=== PATIENT | female | born 1935 | race Caucasian/White ===

== ENCOUNTER 2016-09-06 15:54 | Observation (INO) | payer MEDICARE, MEDICAID ==
[~2016-09-06] VITALS: Ht 160 cm; Wt 73.0 kg
[2016-09-06 15:56] VITALS: BP 168/72; PULSE 67; RESP 20; TEMP 98; O2SAT 99
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
[2016-09-06 17:27] LABS: AUTOMATED NEUTROPHIL # 4.2 TH/MM3 (1.8-7.7); BASOPHIL % 0.4 % (0.0-2.0); EOSINOPHIL # 0.5 TH/MM3 (0-0.4); EOSINOPHIL % 7.8 % (0.0-4.0); HEMATOCRIT 33.7 % (35.0-46.0); HEMO FLAGS DIFF FINAL; LYMPH % 20.1 % (9.0-44.0); LYMPHOCYTE # 1.3 TH/MM3 (1.0-4.8); MEAN CELL VOLUME 86.3 FL (80.0-100.0); MEAN CORPUSCULAR HEMOGLOBIN 28.3 PG (27.0-34.0); MEAN CORPUSCULAR HGB CONC 32.8 % (32.0-36.0); MONO % 7.2 % (0.0-8.0); NEUT % 64.5 % (16.0-70.0); PLATELET COUNT 199 TH/MM3 (150-450); RED BLOOD COUNT 3.91 MIL/MM3 (4.00-5.30); RED CELL DISTRIBUTION WIDTH 15.8 % (11.6-17.2); WHITE BLOOD COUNT 6.5 TH/MM3 (4.0-11.0)
[2016-09-06 17:34] LABS: BACTERIA, URINE MOD /hpf; BLOOD, URINE SMALL (NEG); COMMENT (UR) CULTURE INDICATED; CULTURE IF INDICATED CULTURE INDICATED; GLUCOSE,URINE NEG (NEG); KETONE, URINE NEG (NEG); NITRITE,URINE NEG (NEG); PH, URINE 5.5 (5.0-8.5); SQUAMOUS EPITHELIAL CELL URINE 1 /hpf (0-5); URINE COLOR YELLOW (YELLW/STRAW)
[2016-09-06 17:35] LABS: AMPHETAMINE, URINE NEG (NEG); BARBITURATES, URINE NEG (NEG); COCAINE, URINE NEG (NEG)
[2016-09-06 17:54] LABS: ANION GAP 8 MEQ/L (5-15)
[2016-09-06 18:12] LABS: ALKALINE PHOSPHATASE 68 U/L (45-117); ALT (GPT) 14 U/L (10-53); AST (GOT) 16 U/L (15-37); BICARBONATE 25.2 MEQ/L (21.0-32.0); BLOOD UREA NITROGEN 37 MG/DL (7-18); CHLORIDE 108 MEQ/L (98-107); GLOMERULAR FILTRATION RATE 27 ML/MIN (>89); POTASSIUM 4.3 MEQ/L (3.5-5.1); SODIUM (NA) 141 MEQ/L (136-145); TOTAL BILIRUBIN ADULT 0.6 MG/DL (0.2-1.0)
[2016-09-06 18:13] LABS: ACETAMINOPHEN LESS THAN 2.0 MCG/ML (10.0-30.0)
[2016-09-06] MEDS ORDERED: cefTRIAXone INJ 2,000 MG in SODIUM CHLORIDE 0.9% INJ 100 ML IV ONE (19:00)
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
[2016-09-06] MEDS ORDERED: LORazepam 1 MG TAB PO ONE (19:45)
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
[2016-09-06] MEDS ORDERED: LORazepam 2 MG/ML VIAL IM ONE (20:00)
[2016-09-06] MEDS ORDERED: SODIUM CHLORIDE 0.9% FLUSH 10 ML FLUSH IV FLUSH PRN (20:00)
[2016-09-06] MEDS ORDERED: NALOXONE HCL 0.4 MG/ML AMP IV PRN (20:00)
[2016-09-06] MEDS: SODIUM CHLORIDE 0.9% FLUSH 10 ML FLUSH IV FLUSH SCH (21:00)
[2016-09-06] MEDS ORDERED: LORazepam 2 MG/ML VIAL IV PUSH ONE (21:30)
[2016-09-07] VITALS (8 sets, daily range): BP systolic 133–156; BP diastolic 62–72; PULSE 69–70; RESP 17–20; TEMP 97.2–98.1; O2SAT 94–98
[2016-09-07 07:33] LABS: AUTOMATED NEUTROPHIL # 4.3 TH/MM3 (1.8-7.7); BASOPHIL # 0.1 TH/MM3 (0-0.2); BASOPHIL % 0.8 % (0.0-2.0); EOSINOPHIL # 0.5 TH/MM3 (0-0.4); EOSINOPHIL % 8.2 % (0.0-4.0); HEMATOCRIT 28.6 % (35.0-46.0); HEMO FLAGS DIFF FINAL; MEAN CELL VOLUME 86.1 FL (80.0-100.0); MEAN CORPUSCULAR HEMOGLOBIN 28.9 PG (27.0-34.0); MEAN CORPUSCULAR HGB CONC 33.6 % (32.0-36.0); MONO % 9.2 % (0.0-8.0); NEUT % 65.8 % (16.0-70.0); PLATELET COUNT 159 TH/MM3 (150-450); RED BLOOD COUNT 3.32 MIL/MM3 (4.00-5.30); RED CELL DISTRIBUTION WIDTH 15.7 % (11.6-17.2); WHITE BLOOD COUNT 6.5 TH/MM3 (4.0-11.0)
[2016-09-07 08:22] LABS: BICARBONATE 24.2 MEQ/L (21.0-32.0); POTASSIUM 4.2 MEQ/L (3.5-5.1)
--- NOTE | 2016-09-07 09:41 | HHI.HP ---
[facility] Admission Diagnosis UTI, AMS Diagnoses: Chief Complaint: Memory problems Travel History International Travel<30 Days: No Contact w/Intl Traveler <30 Da: No Traveled to Known Affected Are: No History of Present Illness Written by Bentley Tran, acting as scribe for Dr. Painter on 09/07/16 at 09:41. This note was transcribed by DAYAMI Jordan. I, Dr. Zay Painter personally performed the history, physical exam, and medical decision making; and confirmed the accuracy of the information in the transcribed note. Authenticated by Dr. Zay Painter on 09/07/16 at 23:22. 81-year-old female with past medical history of dementia who was reportedly brought in by her daughter due to agitation. The patient is not really sure why she came to the hospital, states that she has "memory problems". She isn't really having any acute complaints or concerns at this time. The patient knows that she is in the hospital, thinks that she is in [place]. The patient did guess that the month is September, but does not know the year. When asked mother present, the patient initially states "Rosalia", but when questioned further she states the president is "the liz with the funny hair", but she cannot recall the president's name. Discussed with RN, no acute issues overnight. Upon further questioning, the patient has noticed some mild burning with urination recently. She denies any hematuria, flank pain, fever, chills. She denies any issues after receiving IV ceftriaxone. Reportedly the patient's daughter brought the patient in due to episodes of agitation yesterday. 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, although the patient denies any heart issues Dementia Past Surgical History Appendectomy Reported Medications Patient reports none Allergies: Coded Allergies: Penicillin (Verified Allergy, Unknown, 09/06/16) Uncoded Allergies: ANYTHING THAT CAUSES TORSADES (Adverse Reaction, Severe, 09/06/16) Active Ordered Medications Current Medications Medications (Trade) Dose Ordered Sig/[place]anda Route Start Time Stop Time Status Last Admin (NS Flush) 2 ml UNSCH PRN IV FLUSH 09/06/16 20:00 (NS Flush) 2 ml BID IV FLUSH 09/06/16 21:00 Naloxone HCl 0.4 mg 0.4 mg UNSCH PRN IV 09/06/16 20:00 (Rocephin Inj/NS Inj) 100 ml @ 200 mls/hr Q24H IV 09/07/16 21:00 Family History Patient states her father of tuberculosis and her mother of a heart attack Social History The patient lives at home with her daughter Denies any tobacco or alcohol use Physical Exam Vital Signs Vital Signs Date Time Temp Pulse Resp B/P Pulse Ox O2 Delivery O2 Flow Rate FiO2 09/07/16 08:00 70 09/07/16 07:15 98.1 70 18 156/65 98 09/07/16 04:32 98.1 70 17 152/72 94 09/07/16 03:29 69 09/07/16 01:57 70 09/07/16 00:39 97.2 70 17 137/65 97 09/06/16 18:52 18 09/06/16 15:56 98.0 67 20 168/72 99 Room Air Physical Exam GENERAL: Well-developed well-nourished. In no acute distress. Oriented 2. SKIN: Warm and dry. No lesions noted. HEENT: Normocephalic. Pupils equal and round. Mucous membranes pink and moist. CARDIOVASCULAR: Regular rate and rhythm. No murmur appreciated. RESPIRATORY: No accessory muscle use. Clear to auscultation. Breath sounds equal bilaterally. GASTROINTESTINAL: Abdomen soft, non-tender, nondistended. Bowel sounds x4. MUSCULOSKELETAL: No obvious deformities. No clubbing or cyanosis. No edema. NEUROLOGICAL: Awake and alert. No focal neurological deficits. Moves upper and lower extremities spontaneously. Normal speech. PSYCHIATRIC: Calm, pleasant mood and affect; insight and judgment fair. Laboratory Laboratory Tests Test 09/06/16 09/06/16 09/07/16 16:40 16:45 06:31 Urine Color YELLOW Urine Turbidity HAZY Urine pH 5.5 Urine Specific [place] 1.013 Urine Protein NEG Urine Glucose (UA) NEG Urine Ketones NEG Urine Occult Blood SMALL Urine Nitrite NEG Urine Bilirubin NEG Urine Urobilinogen LESS THAN 2.0 Urine Leukocyte Esterase LARGE Urine RBC 10 Urine WBC 151 Urine WBC Clumps FEW Urine Squamous Epithelial 1 Cells Urine Bacteria MOD Microscopic Urinalysis Comment CULTURE INDICATED Urine Opiates Screen NEG Urine Barbiturates Screen NEG Urine Amphetamines Screen NEG Urine Benzodiazepines Screen NEG Urine Cocaine Screen NEG Urine Cannabinoids Screen NEG White Blood Count 6.5 6.5 Red Blood Count 3.91 3.32 Hemoglobin 11.1 9.6 Hematocrit 33.7 28.6 Mean Corpuscular Volume 86.3 86.1 Mean Corpuscular Hemoglobin 28.3 28.9 Mean Corpuscular Hemoglobin 32.8 33.6 Concent Red Cell Distribution Width 15.8 15.7 Platelet Count 199 159 Mean Platelet Volume 7.9 8.0 Neutrophils (%) (Auto) 64.5 65.8 Lymphocytes (%) (Auto) 20.1 16.0 Monocytes (%) (Auto) 7.2 9.2 Eosinophils (%) (Auto) 7.8 8.2 Basophils (%) (Auto) 0.4 0.8 Neutrophils # (Auto) 4.2 4.3 Lymphocytes # (Auto) 1.3 1.0 Monocytes # (Auto) 0.5 0.6 Eosinophils # (Auto) 0.5 0.5 Basophils # (Auto) 0.0 0.1 CBC Comment DIFF FINAL DIFF FINAL Differential Comment Sodium Level 141 143 Potassium Level 4.3 4.2 Chloride Level 108 111 Carbon Dioxide Level 25.2 24.2 Anion Gap 8 8 Blood Urea Nitrogen 37 37 Creatinine 1.79 1.58 Estimat Glomerular Filtration 27 31 Rate Random Glucose 100 97 Calcium Level 9.8 8.7 Total Bilirubin 0.6 Aspartate Amino Transf 16 (AST/SGOT) Alanine Aminotransferase 14 (ALT/SGPT) Alkaline Phosphatase 68 Total Protein 8.8 Albumin 4.0 Thyroid Stimulating Hormone 1.650 3rd Gen Acetaminophen Level LESS THAN 2.0 Ethyl Alcohol Level LESS THAN 3 Salicylates Level 2.0 Date/Time Procedure Status Source Growth 09/06/16 16:40 Urine Culture Received Urine Random Urine Pending Result Diagram: 09/07/1631 09/07/16630 Assessment and Plan Assessment and Plan 81-year-old female with past medical history of dementia who was reportedly brought in by her daughter due to agitation Dementia with agitation: By history. Currently under Mccurdy act. Patient has been calm and cooperative here. Possibly exacerbated by UTI as below. Psychiatry consulted. Continue sitter for now. UTI: UA with evidence of UTI and patient complains of dysuria. Continue IV ceftriaxone. Follow up urine culture. JUAN F: Creatinine 1.79, no previous labs for comparison. Unclear if element CKD vs acute worsening due to above infection. Creatinine did improve spontaneously to 1.58 overnight. Start IVF. Follow-up BMP. DVT prophylaxis: SCDs Disposition: Patient was evaluated by psychiatry who recommended medical psychiatry admission. Discharge to medical psychiatry unit to use IV antibiotics and IV fluids pending results of urine culture. Discharge patient to Psych care facility. Condition on discharge: Improved Regular Diet as tolerated Ad Umm activity Rx written: Ceftriaxone 1g IM Q24hrs x 3 days. Follow-up with primary care physician per Psychiatry team. Discussed Condition With Patient, Bentley Parker Sep 07, 2016 09:41 Allison Painter DO Sep 07, 2016 23:23
[2016-09-07] MEDS ORDERED: SODIUM CHLOR 0.9% 1000 ML INJ 1,000 ML IV SCH (10:00)
[2016-09-07] MEDS: SODIUM CHLORIDE 0.9% FLUSH 10 ML FLUSH IV FLUSH SCH (10:02)
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
[2016-09-07] MEDS ORDERED: CEFT1INJ IM (12:34)
[2016-09-07] MEDS ORDERED: cefTRIAXone INJ 1,000 MG in SODIUM CHLORIDE 0.9% INJ 100 ML IV SCH (21:00)
--- NOTE | 2016-09-08 09:37 | EKG ---
Date Performed: 09/07/2016 Time Performed: 12:33:07 PTAGE: 81 years EKG: ELECTRONIC ATRIAL PACEMAKER NONSPECIFIC T-WAVE ABNORMALITY ABNORMAL RHYTHM ECG NO PREVIOUS TRACING DOCTOR: Harry Bowers Interpretating Date/Time 09/08/2016 09:33:43
== END 2016-09-07 15:26 ==
LOC: NEPD 15:54 → INTOOBSV 19:58 → NEDA 19:58 → NEPGCP 09-07 00:31
PROVIDERS: ADMIT Hospitalist; ATTEND Hospitalist
DX: G30.9 Alzheimer's disease, unspecified (principal); F02.81 Dementia in other diseases classified elsewhere, unspecified severity, with behavioral disturbance; Z91.83 Wandering in diseases classified elsewhere; N39.0 Urinary tract infection, site not specified; R31.9 Hematuria, unspecified; N17.9 Acute kidney failure, unspecified; E78.00 Pure hypercholesterolemia, unspecified; I11.0 Hypertensive heart disease with heart failure; I50.9 Heart failure, unspecified
CPT/HCPCS: 80048; 80053; 80307; 81001; 84443; 85025; 87077; 87086; 87186; 93005; 96365; 96376; 97162; 99285; G0378; G8987; G8988; J0696; J7030

== ENCOUNTER 2016-09-07 14:50 | Inpatient (IN) | payer MEDICARE, MEDICAID ==
[~2016-09-07 14:50] MED LIST: CEFT1INJ IM
[2016-09-07 15:45] VITALS: BP 152/67; PULSE 70; RESP 18; TEMP 99; O2SAT 95
[2016-09-07] MEDS ORDERED: LORazepam 1 MG TAB PO PRN (16:15)
[2016-09-07] MEDS: NICOTINE 21 MG/24 HR PATCH T-DERMAL SCH (16:15)
[2016-09-07] MEDS ORDERED: MAGNESIUM HYDROXIDE SUSP 30 ML CUP PO PRN (16:15)
[2016-09-07] MEDS ORDERED: ACETAMINOPHEN 325 MG TAB PO PRN (16:15)
[2016-09-07] MEDS ORDERED: LORazepam 0.5 MG TAB PO PRN (16:15)
[2016-09-07] MEDS ORDERED: LORazepam 2 MG/ML VIAL IM PRN ×2 (16:15)
[2016-09-07] MEDS ORDERED: ALUMINUM/MAGNESIUM/SIMETH 30 ML CUP PO PRN (16:15)
[2016-09-07] MEDS: SODIUM CHLOR 0.9% 1000 ML INJ 1,000 ML IV SCH (17:15)
[2016-09-07 18:10] VITALS: BP 127/58; PULSE 70; RESP 16; TEMP 98.3; O2SAT 99
[2016-09-07] MEDS ORDERED: cefTRIAXone INJ 1,000 MG in SODIUM CHLORIDE 0.9% INJ 100 ML IV SCH (20:00)
[2016-09-07] MEDS: REMOVE OLD NICODERM (NICOTINE) PATCH T-DERMAL SCH (20:39)
[2016-09-08] MEDS: SODIUM CHLOR 0.9% 1000 ML INJ 1,000 ML IV SCH ×2 (05:10→17:05)
[2016-09-08 06:17] VITALS: BP 150/75; PULSE 69; RESP 16; TEMP 96.8; O2SAT 96
[2016-09-08 08:01] VITALS: BP 150/75; PULSE 69; RESP 16; TEMP 96.8
[2016-09-08 08:32] LABS: ANION GAP 8 MEQ/L (5-15); BICARBONATE 25.3 MEQ/L (21.0-32.0); BLOOD UREA NITROGEN 31 MG/DL (7-18); CHLORIDE 109 MEQ/L (98-107); GLOMERULAR FILTRATION RATE 34 ML/MIN (>89); HDL CHOLESTEROL 30.2 MG/DL (40.0-60.0); LDL CHOLESTEROL 74 MG/DL (0-99); POTASSIUM 4.5 MEQ/L (3.5-5.1); SODIUM (NA) 142 MEQ/L (136-145)
[2016-09-08] MEDS: NICOTINE 21 MG/24 HR PATCH T-DERMAL SCH (09:00)
--- NOTE | 2016-09-08 14:31 | EKG ---
Date Performed: 09/08/2016 Time Performed: 10:50:49 PTAGE: 81 years EKG: ELECTRONIC ATRIAL PACEMAKER NONSPECIFIC T-WAVE ABNORMALITY ABNORMAL RHYTHM ECG Since PREVIOUS TRACING , no significant change noted PREVIOUS TRACIN09/07/2016 12.33 DOCTOR: Harry Bowers Interpretating Date/Time 09/08/2016 14:29:40
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
[2016-09-08 16:44] LABS: HEMOGLOBIN A1a 1.2 %; HEMOGLOBIN A1b 1.7 %; HEMOGLOBIN Ao 83.8 %; HEMOGLOBIN LA1C 2.5 %
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
[2016-09-08 18:56] VITALS: BP 177/74; RESP 16; TEMP 98.4
[2016-09-08] MEDS: REMOVE OLD NICODERM (NICOTINE) PATCH T-DERMAL SCH (21:00)
[2016-09-08 21:03] LABS: FERRITIN 347 NG/ML (8-252); TRANSFERRIN IRON PROFILE 173 MG/DL (200-360)
[2016-09-08] MEDS: CIPROFLOXACIN 250 MG TAB PO SCH (21:06)
[2016-09-09] MEDS: SODIUM CHLOR 0.9% 1000 ML INJ 1,000 ML IV SCH ×2 (04:58→17:11)
[2016-09-09 06:10] VITALS: BP 158/68; PULSE 70; RESP 16; TEMP 98.3; O2SAT 95
[2016-09-09 06:19] VITALS: BP 158/68; PULSE 70; RESP 15; TEMP 98.3; O2SAT 95
[2016-09-09] MEDS: CIPROFLOXACIN 250 MG TAB PO SCH ×2 (09:17→21:16)
--- NOTE | 2016-09-09 09:17 | HHI.PR ---
Subjective Remarks Sleepy, says she did not sleep overnight much. Per nurse she was very upset yesterday and she did refuse meds and eating. Patient says she is feeling better today. No n/v/d/c. Doesn't have any urinary complaints. No n/v/d/c. Objective Vitals Vital Signs Date Time Temp Pulse Resp B/P Pulse Ox O2 Delivery O2 Flow Rate FiO2 09/09/16 06:19 98.3 70 15 158/68 95 09/09/16 06:10 98.3 70 16 158/68 95 09/08/16 18:56 98.4 16 177/74 I/O 09/08/16 09/08/16 09/08/16 09/09/16 09/09/16 09/09/16 07:00 15:00 23:00 07:00 15:00 23:00 Intake Total 240 ml 1680 ml 840 ml 1200 ml 960 ml Balance 240 ml 1680 ml 840 ml 1200 ml 960 ml Intake Oral 240 ml 1680 ml 840 ml 1200 ml 960 ml # Voids 2 2 2 6 Result Diagram: 09/08/16 0730 Objective Remarks GENERAL: This is a well-nourished, well-developed patient, in no apparent distress. Awake and alert. Calm and pleasant. CARDIOVASCULAR: Regular rate and rhythm without murmurs, gallops, or rubs. RESPIRATORY: Clear to auscultation. Breath sounds equal bilaterally. No wheezes , rales, or rhonchi. GASTROINTESTINAL: Abdomen soft, non-tender, nondistended. No hepato-splenomegaly , or palpable masses. No guarding. MUSCULOSKELETAL: Extremities without clubbing, cyanosis, or edema. No joint tenderness, effusion, or edema noted. No calf tenderness. NEUROLOGICAL: Awake and alert. Able to move all extremities. Normal speech. A/P Assessment and Plan 81 year old female with past medical history of dementia who was reportedly brought in to the hospital under Mccurdy act by her daughter due to agitation found to have acute kidney injury and a urinary tract infection. Hospitalist services have been consulted for ongoing medical management. Dementia with behavioral disturbance AMS Management per psychiatric team Possibly related to urinary tract infection UTI Urine culture positive for greater than 100,000 Enterobacter cloacae DC IV ceftriaxone. Begin Cipro by mouth. JUAN F Unknown if patient underlying CKD Trending down Avoid nephrotoxic agents Encourage fluids Continue to monitor BMP History of CHF, not in acute exacerbation Torsades de pointes Monitor for evidence of fluid overload Avoid QTC prolonging medications Potassium 4.5 Check Mag level Anemia Trending down Stool for occult blood Iron studies ordered Monitor DVT prophylaxis Ambulate Thank you for this consultation. We will follow along Discussed Condition With Patient and nurse Светлана Johnson MD Sep 09, 2016 09:17
[2016-09-09] MEDS: NICOTINE 21 MG/24 HR PATCH T-DERMAL SCH (09:20)
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
[2016-09-09 17:12] LABS: BICARBONATE 24.6 MEQ/L (21.0-32.0)
[2016-09-09] MEDS: REMOVE OLD NICODERM (NICOTINE) PATCH T-DERMAL SCH (21:00)
[2016-09-10] VITALS: BP 167/77; PULSE 71; RESP 15; TEMP 98.5; O2SAT 96
[2016-09-10] MEDS: SODIUM CHLOR 0.9% 1000 ML INJ 1,000 ML IV SCH ×2 (04:50→16:45)
[2016-09-10] MEDS: CIPROFLOXACIN 250 MG TAB PO SCH ×2 (08:12→20:25)
[2016-09-10] MEDS: NICOTINE 21 MG/24 HR PATCH T-DERMAL SCH (08:12)
[2016-09-10] MEDS: REMOVE OLD NICODERM (NICOTINE) PATCH T-DERMAL SCH (08:12)
--- NOTE | 2016-09-10 11:21 | HHI.PYPN ---
Subjective Remarks Patient seen and examined with nurse. Chart reviewed. Case discussed with nursing staff. No behavioral issues overnight. On my examination today, the patient knows that it is Sunday and knows that she is on a psychiatric unit. She denies any SI, HI or AVH. She is calm and pleasant. Denies side effects from medications. No physical complaints. Review of Systems Except as stated in HPI: all other systems reviewed are Neg Objective Alert: Yes [place]: Person, Place (psychiatric unit), Date (Sunday) Mood: Calm Affect: Blunted Memory Intact: Comment (Intact on clinical exam) Hallucinations: Other (No AVH) Delusions: No Delusion Type: Other (None) Suicidal: Ideation (No SI) Homicidal: Ideation (No HI) Insight/Judgment Poor Remarks no motor abnormalities noted Labs Test 09/09/16 16:20 Sodium Level 143 MEQ/L Potassium Level 5.0 MEQ/L Chloride Level 110 MEQ/L Carbon Dioxide Level 24.6 MEQ/L Anion Gap 8 MEQ/L Blood Urea Nitrogen 32 MG/DL Creatinine 1.31 MG/DL Estimat Glomerular Filtration 39 ML/MIN Rate Random Glucose 104 MG/DL Calcium Level 8.5 MG/DL Labs reviewed Vitals/IOs Vital Signs Date Time Temp Pulse Resp B/P Pulse Ox O2 Delivery O2 Flow Rate FiO2 09/10/16 00:00 98.5 71 15 167/77 96 Intake and Output 09/09/16 09/09/16 09/10/16 08:00 16:00 00:00 Intake Total 480 ml 1440 ml 2040 ml Balance 480 ml 1440 ml 2040 ml Assessment & Plan Problem List: (1) Adjustment disorder with disturbance of conduct ICD Code: F43.24 Assessment & Plan Add clonidine as needed for marked hypertension. Appreciate hospitalist input. Continue other medications and care as ordered. Justification for Cont. Inpt. Risk for decompensation Discharge Planning Per Dr. Farris Request HC Surrog/Guard Advoc?: Yes Harry Lockett MD Sep 10, 2016 11:21
[2016-09-10] MEDS ORDERED: cloNIDine HCL 0.1 MG TAB PO PRN (11:30)
--- NOTE | 2016-09-10 16:13 | HHI.PR ---
Subjective Remarks Patient is in bed. Says fredrick feels good and she would like to go home, says her daughter will take her home. She denies having any pain in her abdomen, no urinary complaints. No n/v/d/c. Eating well. Objective Vitals Vital Signs Date Time Temp Pulse Resp B/P Pulse Ox O2 Delivery O2 Flow Rate FiO2 09/10/16 00:00 98.5 71 15 167/77 96 I/O 09/09/16 09/09/16 09/09/16 09/10/16 09/10/16 09/10/16 07:00 15:00 23:00 07:00 15:00 23:00 Intake Total 1200 ml 1440 ml 2040 ml 240 ml 1440 ml Balance 1200 ml 1440 ml 2040 ml 240 ml 1440 ml Intake Oral 1200 ml 1440 ml 2040 ml 240 ml 1440 ml # Voids 6 2 6 3 Result Diagram: 09/09/16 1620 Objective Remarks GENERAL: This is a well-nourished, well-developed patient, in no apparent distress. Awake and alert. Calm and pleasant. CARDIOVASCULAR: Regular rate and rhythm without murmurs, gallops, or rubs. RESPIRATORY: Clear to auscultation. Breath sounds equal bilaterally. No wheezes , rales, or rhonchi. GASTROINTESTINAL: Abdomen soft, non-tender, nondistended. No hepato-splenomegaly , or palpable masses. No guarding. MUSCULOSKELETAL: Extremities without clubbing, cyanosis, or edema. No joint tenderness, effusion, or edema noted. No calf tenderness. NEUROLOGICAL: Awake and alert. Able to move all extremities. Normal speech. A/P Assessment and Plan 81 year old female with past medical history of dementia who was reportedly brought in to the hospital under Mccurdy act by her daughter due to agitation found to have acute kidney injury and a urinary tract infection. Hospitalist services have been consulted for ongoing medical management. Dementia with behavioral disturbance AMS Management per psychiatric team Possibly related to urinary tract infection UTI Urine culture positive for greater than 100,000 Enterobacter cloacae DC IV ceftriaxone. Begin Cipro by mouth. JUAN F Unknown if patient underlying CKD Trending down Avoid nephrotoxic agents Encourage fluids Continue to monitor BMP History of CHF, not in acute exacerbation Torsades de pointes Monitor for evidence of fluid overload Avoid QTC prolonging medications Potassium 4.5 Check Mag level Anemia Trending down Stool for occult blood Iron studies ordered Monitor DVT prophylaxis Ambulate Thank you for this consultation. We will follow along Discussed Condition With Patient and nurse Светлана Johnson MD Sep 10, 2016 16:12
[2016-09-10 16:27] LABS: AUTOMATED NEUTROPHIL # 4.4 TH/MM3 (1.8-7.7); BASOPHIL # 0.1 TH/MM3 (0-0.2); BASOPHIL % 0.9 % (0.0-2.0); EOSINOPHIL # 0.9 TH/MM3 (0-0.4); EOSINOPHIL % 12.6 % (0.0-4.0); HEMATOCRIT 31.7 % (35.0-46.0); HEMO FLAGS DIFF FINAL; LYMPH % 18.4 % (9.0-44.0); LYMPHOCYTE # 1.3 TH/MM3 (1.0-4.8); MEAN CORPUSCULAR HGB CONC 33.7 % (32.0-36.0); MONO % 7.6 % (0.0-8.0); NEUT % 60.5 % (16.0-70.0); PLATELET COUNT 177 TH/MM3 (150-450); RED BLOOD COUNT 3.68 MIL/MM3 (4.00-5.30); WHITE BLOOD COUNT 7.2 TH/MM3 (4.0-11.0)
[2016-09-10 16:50] LABS: BICARBONATE 24.7 MEQ/L (21.0-32.0); POTASSIUM 4.8 MEQ/L (3.5-5.1)
[2016-09-10 18:41] VITALS: BP 167/74; PULSE 71; RESP 15; TEMP 98.5; O2SAT 96
[2016-09-11] MEDS: SODIUM CHLOR 0.9% 1000 ML INJ 1,000 ML IV SCH ×2 (04:40→16:35)
[2016-09-11 06:30] VITALS: BP 152/68; PULSE 70; RESP 18; TEMP 97.4; O2SAT 96
[2016-09-11] MEDS: CIPROFLOXACIN 250 MG TAB PO SCH ×2 (08:41→21:29)
[2016-09-11] MEDS: NICOTINE 21 MG/24 HR PATCH T-DERMAL SCH (08:41)
--- NOTE | 2016-09-11 11:30 | HHI.PR ---
Subjective Remarks In the chair, she is dressed up says she is ready to go home. Says her daughter will pick her up. Patient is very pleasant. Says she is eating well. Has no urinary complaints. No fever or chills. No n/v/d/c. Objective Vitals Vital Signs Date Time Temp Pulse Resp B/P Pulse Ox O2 Delivery O2 Flow Rate FiO2 09/11/16 06:30 97.4 70 18 152/68 96 09/10/16 18:41 98.5 71 15 167/74 96 I/O 09/10/16 09/10/16 09/10/16 09/11/16 09/11/16 09/11/16 06:59 14:59 22:59 06:59 14:59 22:59 Intake Total 240 ml 1440 ml 1405 ml 1247 ml Balance 240 ml 1440 ml 1405 ml 1247 ml Intake Oral 240 ml 1440 ml 1080 ml 240 ml IV Total 325 ml 1007 ml # Voids 3 3 4 Result Diagram: 09/10/16 1600 09/10/16 1600 Objective Remarks GENERAL: This is a well-nourished, well-developed patient, in no apparent distress. Awake and alert. Calm and pleasant. CARDIOVASCULAR: Regular rate and rhythm without murmurs, gallops, or rubs. RESPIRATORY: Clear to auscultation. Breath sounds equal bilaterally. No wheezes , rales, or rhonchi. GASTROINTESTINAL: Abdomen soft, non-tender, nondistended. No hepato-splenomegaly , or palpable masses. No guarding. MUSCULOSKELETAL: Extremities without clubbing, cyanosis, or edema. No joint tenderness, effusion, or edema noted. No calf tenderness. NEUROLOGICAL: Awake and alert. Able to move all extremities. Normal speech. A/P Assessment and Plan 81 year old female with past medical history of dementia who was reportedly brought in to the hospital under Mccurdy act by her daughter due to agitation found to have acute kidney injury and a urinary tract infection. Hospitalist services have been consulted for ongoing medical management. Dementia with behavioral disturbance AMS Management per psychiatric team Possibly related to urinary tract infection UTI Urine culture positive for greater than 100,000 Enterobacter cloacae DC IV ceftriaxone. Begin Cipro by mouth. JUAN F Unknown if patient underlying CKD Trending down Avoid nephrotoxic agents Encourage fluids Continue to monitor BMP History of CHF, not in acute exacerbation Torsades de pointes Monitor for evidence of fluid overload Avoid QTC prolonging medications Potassium 4.5 Check Mag level Anemia Trending down Stool for occult blood Iron studies ordered Monitor DVT prophylaxis Ambulate Thank you for this consultation. We will follow along Discussed Condition With Patient and nurse Stable medically , can be DC from hospitalist standpoint Светлана Johnson MD Sep 11, 2016 11:30
[2016-09-11 16:00] VITALS: BP 171/70; PULSE 70; RESP 18; TEMP 98.4; O2SAT 99
--- NOTE | 2016-09-11 16:01 | HHI.PYPN ---
Subjective Remarks Patient seen and examined. Chart reviewed. Case discussed with nursing staff who reports that the patient has been no behavioral problems. Per nursing staff , patient's daughter is about ready to accept the patient home but is waiting to finalize arrangements for adult day care, anticipated tomorrow. On my examination today, I find the patient ambulating around the unit with a steady gait. She is somewhat discharge focused. She remains at her confused baseline. No psychotic symptoms. No SI or HI. No side effects from medications. No physical complaints. Review of Systems ROS Limitations: Poor Historian Except as stated in HPI: all other systems reviewed are Neg Objective Alert: Yes [place]: Person, Place (at least) Mood: Anxious (mild) Affect: Blunted Memory Intact: Comment (somewhat impaired) Hallucinations: Other (No AVH) Delusions: No Delusion Type: Other (No delusions) Suicidal: Ideation (No SI) Homicidal: Ideation (No HI) Insight/Judgment Poor Remarks No motor abnormalities Labs Labs reviewed Vitals/IOs Vital Signs Date Time Temp Pulse Resp B/P Pulse Ox O2 Delivery O2 Flow Rate FiO2 09/11/16 06:30 97.4 70 18 152/68 96 Intake and Output 09/10/16 09/10/16 09/11/16 08:00 16:00 00:00 Intake Total 240 ml 1440 ml 1405 ml Balance 240 ml 1440 ml 1405 ml Assessment & Plan Problem List: (1) Adjustment disorder with disturbance of conduct ICD Code: F43.24 Assessment & Plan Continue to monitor on the inpatient psychiatric unit. I note that the hospitalist has medically cleared the patient. Continue other medications and care as ordered. Justification for Cont. Inpt. Risk for decompensation Discharge Planning Possible discharge tomorrow, as per Dr. Farris. Request HC Surrog/Guard Advoc?: Yes Harry Lockett MD Sep 11, 2016 16:00
[2016-09-11] MEDS: REMOVE OLD NICODERM (NICOTINE) PATCH T-DERMAL SCH (21:00)
[2016-09-12] MEDS: SODIUM CHLOR 0.9% 1000 ML INJ 1,000 ML IV SCH ×2 (04:30→16:25)
[2016-09-12 05:17] VITALS: BP 146/63; PULSE 98; RESP 18; TEMP 97.9; O2SAT 93
[2016-09-12] MEDS: NICOTINE 21 MG/24 HR PATCH T-DERMAL SCH (09:00)
[2016-09-12] MEDS: CIPROFLOXACIN 250 MG TAB PO SCH ×2 (09:53→20:48)
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
--- NOTE | 2016-09-12 11:21 | HHI.PYPN ---
Subjective Remarks Patient's for follow with nurse, chart reviewed. As per patient report patient yesterday had pulled out her IV line, continues to be noted to be eating drinking but also noted to be irritable and perseverative on discharge home. Patient seen and casual clothing ambulating throughout her room was able to sit down and engage in interview. Patient noted to be irritable and she continued to be perseverative on discharge home. Patient states that she has no medical complaints at this time, sleeping, eating and drinking well. She she states that her mood lately has been "cranky". Patient continues to have difficulty with immediate, recall memory as possible discharge plan is continuously being reiterated by staff. Patient at this time denies SI, HI, AVH or delusions. Review of Systems Except as stated in HPI: all other systems reviewed are Neg Objective Alert: Yes [place]: Person, Place (at least) Mood: Other ("cranky") Affect: Other (congruent with mood) Memory Intact: Comment (recent and immediate memory impaired) Hallucinations: Other (No AVH) Delusions: No Delusion Type: Other (No delusions) Suicidal: Ideation (No SI) Homicidal: Ideation (No HI) Insight/Judgment Poor insight, poor impulse control, poor judgment Vitals/IOs Vital Signs Date Time Temp Pulse Resp B/P Pulse Ox O2 Delivery O2 Flow Rate FiO2 09/12/16 05:17 97.9 98 18 146/63 93 Intake and Output 09/11/16 09/11/16 09/12/16 08:00 16:00 00:00 Intake Total 1247 ml 600 ml 480 ml Output Total 2 ml Balance 1247 ml 600 ml 478 ml Assessment & Plan Problem List: (1) Adjustment disorder with disturbance of conduct ICD Code: F43.24 Assessment & Plan Estimated LOS: 3-5 days. Patient at this time continues to be perseverative on discharge patient currently has no depressive manic or psychotic symptoms although has evidence of cognitive impairment secondary to dementia. Discharge planning is currently in progress with attempts to acquire support services for the patient as well as for the family. Patient has not exhibited any behavioral disturbances while on the unit . At this time will be continued be monitored medically. Brief supportive psychotherapy provided. Discharge planning in progress Justification for Cont. Inpt. Patient at risk for decompensation if it lower level of care. Discharge Planning In progress Request HC Surrog/Guard Advoc?: Yes Brenton,Marito Rashaun MD Sep 12, 2016 11:21
[2016-09-12 17:33] VITALS: BP 172/73; PULSE 80; RESP 18; TEMP 98.9; O2SAT 99
[2016-09-12] MEDS: REMOVE OLD NICODERM (NICOTINE) PATCH T-DERMAL SCH (20:48)
[2016-09-13] MEDS: SODIUM CHLOR 0.9% 1000 ML INJ 1,000 ML IV SCH (03:32)
[2016-09-13 05:08] VITALS: BP 136/64; PULSE 73; RESP 18; TEMP 97.8; O2SAT 94
[2016-09-13] MEDS: NICOTINE 21 MG/24 HR PATCH T-DERMAL SCH (09:00)
[2016-09-13] MEDS: CIPROFLOXACIN 250 MG TAB PO SCH (09:00)
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
[2016-09-13 12:06] LABS: BICARBONATE 23.5 MEQ/L (21.0-32.0); POTASSIUM 5.1 MEQ/L (3.5-5.1)
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
== END 2016-09-13 13:45 | disposition home health service (06) | DRG 882 ==
LOC: H4EA 15:28
PROVIDERS: ADMIT Student in an Organized Health Care Education/Training Program; ATTEND Student in an Organized Health Care Education/Training Program
DX: F43.24 Adjustment disorder with disturbance of conduct (principal); N17.9 Acute kidney failure, unspecified; I47.2 Ventricular tachycardia; N39.0 Urinary tract infection, site not specified; F03.91 Unspecified dementia, unspecified severity, with behavioral disturbance; I50.9 Heart failure, unspecified; D64.9 Anemia, unspecified; I10 Essential (primary) hypertension; R41.844 Frontal lobe and executive function deficit
CPT/HCPCS: 80048; 80061; 82607; 82728; 82747; 83036; 83540; 83550; 83735; 85025; 93005; J0696; J7030

== ENCOUNTER 2016-10-12 12:14 | Emergency (ER) | payer MEDICARE, MEDICAID ==
[~2016-10-12] VITALS: Ht 162.6 cm; Wt 80.0 kg
[2016-10-12 12:17] VITALS: BP 127/58; PULSE 70; RESP 20; TEMP 97.6; O2SAT 98
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
[2016-10-12 15:11] LABS: AUTOMATED NEUTROPHIL # 2.5 TH/MM3 (1.8-7.7); BASOPHIL % 0.4 % (0.0-2.0); EOSINOPHIL # 1.1 TH/MM3 (0-0.4); EOSINOPHIL % 20.1 % (0.0-4.0); HEMATOCRIT 31.3 % (35.0-46.0); HEMO FLAGS DIFF FINAL; LYMPHOCYTE # 1.6 TH/MM3 (1.0-4.8); MEAN CELL VOLUME 88.9 FL (80.0-100.0); MEAN CORPUSCULAR HEMOGLOBIN 29.6 PG (27.0-34.0); MEAN CORPUSCULAR HGB CONC 33.3 % (32.0-36.0); MONO % 7.3 % (0.0-8.0); NEUT % 44.2 % (16.0-70.0); PLATELET COUNT 137 TH/MM3 (150-450); RED BLOOD COUNT 3.52 MIL/MM3 (4.00-5.30); WHITE BLOOD COUNT 5.6 TH/MM3 (4.0-11.0)
[2016-10-12 15:15] VITALS: BP 164/72; PULSE 84; RESP 17
[2016-10-12 15:20] LABS: ALKALINE PHOSPHATASE 53 U/L (45-117); TOTAL BILIRUBIN ADULT 0.3 MG/DL (0.2-1.0)
[2016-10-12 15:21] LABS: ALT (GPT) 25 U/L (10-53); ANION GAP 6 MEQ/L (5-15); AST (GOT) 25 U/L (15-37); BICARBONATE 22.8 MEQ/L (21.0-32.0); BLOOD UREA NITROGEN 46 MG/DL (7-18); CHLORIDE 111 MEQ/L (98-107); GLOMERULAR FILTRATION RATE 24 ML/MIN (>89); POTASSIUM 5.3 MEQ/L (3.5-5.1); SODIUM (NA) 140 MEQ/L (136-145)
[2016-10-12] MEDS ORDERED: SODIUM CHLOR 0.9% 1000 ML INJ 1,000 ML IV SCH ×2 (16:00)
[2016-10-12 18:01] VITALS: BP 180/71; PULSE 84; RESP 17; O2SAT 99
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
[2016-10-13] MEDS ORDERED: LORA-392 PO (00:05)
[2016-10-13] MEDS ORDERED: ASPI81CH37 CHEW (00:05)
[2016-10-13] MEDS ORDERED: CARV12.5 PO (00:05)
[2016-10-13] MEDS ORDERED: MACR100C2 PO (00:05)
[2016-10-13] MEDS ORDERED: VALP250C PO (00:05)
[2016-10-13] MEDS ORDERED: LOSA25TA PO (00:05)
[2016-10-13 01:20] LABS: BACTERIA, URINE RARE /hpf; BLOOD, URINE SMALL (NEG); COMMENT (UR) CULTURE INDICATED; CULTURE IF INDICATED CULTURE INDICATED; GLUCOSE,URINE NEG (NEG); KETONE, URINE NEG (NEG); MUCUS URINE FEW /lpf (OCC); NITRITE,URINE POS (NEG); PH, URINE 5.5 (5.0-8.5); SQUAMOUS EPITHELIAL CELL URINE <1 /hpf (0-5); URINE COLOR LIGHT-YELLOW (YELLW/STRAW)
[2016-10-13 05:07] VITALS: BP 164/70; PULSE 71; RESP 16; O2SAT 98
[2016-10-13] MEDS ORDERED: SULFAMETHOXAZOLE-TRIMETHOPRIM DS 800-160 MG TAB PO SCH (09:00)
[2016-10-13] MEDS ORDERED: CIPR-9 PO (11:42)
[2016-10-13 11:52] VITALS: BP 132/65
== END 2016-10-13 12:06 | disposition home or self-care (01) ==
LOC: NEPD 12:14 → NEPB 10-13 12:06
DX: F43.24 Adjustment disorder with disturbance of conduct (principal); N39.0 Urinary tract infection, site not specified; B96.29 Other Escherichia coli [E. coli] as the cause of diseases classified elsewhere
CPT/HCPCS: 80053; 80307; 81001; 85025; 87077; 87086; 87186; 96360; 96361; 99284; J7030